=== PATIENT | male | born 2000 | race Caucasian/White ===

== ENCOUNTER 2024-01-02 21:37 | Emergency (ER) | payer OTHER, SELFPAY ==
[2024-01-02 21:55] VITALS: BP 136/68; PULSE 95; RESP 18; TEMP 36.9; O2SAT 100; BMI 22.1
--- NOTE | 2024-01-02 23:54 | ED_ITS ---
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 Patient states that he has seen a mental health provider in the past but nothing currently. He was not currently taking any medications. He states that earlier today while at work he had fleeting thoughts of wanting to hurt himself. No specific plan. He did not hurt himself. He stated that he would not hurt himself and he feels safe at home. He thinks that factors from today's event where because of other coworkers and a new individual who is in charge of him at work. He went to go talk with his other supervisors who then ran the situation of the chain of command and advised the patient come in to be evaluated. Currently is not suicidal not homicidal. States that he only would like resources in case something were to become worse in the future. He stated that he did have plans on talking with the rn manager but did not have a chance to do that today. Related Data Allergies Allergy/AdvReac Type Severity Reaction Status Date / Time No Known Drug Allergies Allergy Verified 01/02/24 21:55 Review of Systems Review of Systems Narrative: See HPI Patient History Social History Smoking Status: Current every day smoker Smoking Status: Current every day smoker tobacco type: vaping alcohol intake frequency: a few times a month Substance Use Type: does not use Exam Initial Vital Signs Initial Vital Signs: Vital Signs Temperature 98.5 F 01/02/24 21:55 Pulse Rate 95 H 01/02/24 21:55 Respiratory Rate 18 01/02/24 21:55 Blood Pressure 136/68 01/02/24 21:55 Pulse Oximetry 100 01/02/24 21:55 Oxygen Delivery Method Room Air 01/02/24 21:55 Const General: cooperative, comfortable and No ill appearing [facility] Head: normal to inspection and normocephalic Resp Effort & Inspection: normal respiratory effort Cardio Rate: regular rate Neuro General: patient alert, patient awake, patient oriented x3 and moves all extremities Psych Appearance: grossly normal and well kempt Course Vital Signs Vital signs: Vital Signs - 8 hr 01/02/24 21:55 Temperature 98.5 F Pulse Rate 95 H Respiratory Rate 18 Blood Pressure 136/68 Pulse Oximetry 100 Oxygen Delivery Method Room Air MDM - Psych MDM Narrative Medical decision making narrative: Patient was not suicidal. Not homicidal. Does feel safe at home. States he would return to the emergency department if needed. Has a plan for follow-up with his rn manager. Patient was alert and oriented x3. GCS of 15. He was clinically sober. Patient does not require admission to the hospital. He was given resources with the guard to suicidal hotline and also was informed that he could return to the emergency department at any point. Recommended that he talk with his medical department and also the [facility] office and the Mental Health Department on the [facility] patient understanding. Discharge Plan Departure Patient Disposition: Home Clinical Impression: Suicidal thoughts Activity Restrictions/Additional Instructions: I recommend that you contact your medical department to determine any long-term fit for duty issues. I also recommend that tomorrow you follow-up with the rn manager. They can be very helpful in the circumstances. You can also return to the emergency department at any point for new or worsening symptoms. Referrals: [facility] [Primary Care Provider] - Stand Alone Forms: Patient Portal/API
== END 2024-01-03 00:06 | disposition home or self-care (01) ==
PROVIDERS: Emergency Provider Emergency Medicine
DX: R45.851 Suicidal ideations (principal)
CPT/HCPCS: 99283